=== PATIENT | female | born 1995 | race Two or more races ===

== ENCOUNTER 2018-05-13 14:34 | Inpatient (IN) ==
[2018-05-13] MEDS ORDERED: BUTORPHANOL 2 MG/ML VIAL IV PRN (14:57)
[2018-05-13] MEDS ORDERED: ONDANSETRON 4 MG/2 ML VIAL IV PRN (14:57)
[2018-05-13] MEDS ORDERED: MEPERIDINE 50 MG/1 ML VIAL IV PRN (14:57)
[2018-05-13] MEDS ORDERED: DINOPROSTONE VAG GEL 10 MG SYRINGE VAG ONE (14:59)
[2018-05-13] MEDS: LACTATED RINGERS 1,000 ML IV SCH ×2 (15:09→23:34)
[2018-05-13 15:12] LABS: Basophils # 0.1 10*3/uL (0.0-0.2); Basophils % 0.4 % (0.0-0.8); Eosinophils # 0.1 10*3/uL (0.0-0.87); Eosinophils % 0.4 % (0.00-10.9); Hemoglobin 13.2 GM/DL (12.0-16.0); Immature Granulocytes % 1.6 %; Immature Granulocytes Absolute 0.22 #; Lymphocytes # 1.3 10*3/uL (1.4-4.0); Lymphocytes % 9.3 % (21.3-54.2); Mean Corpuscular HGB Conc 34.7 GM/DL (32-36); Mean Corpuscular Hemoglobin 31 PG (27-34); Monocytes # 0.8 10*3/uL (0.11-0.8); Monocytes % 5.8 % (1.7-12.7); Neutrophils # 11.3 10*3/uL (1.4-7.4); Neutrophils % 82.5 % (38.7-73.9); Platelet Count 211 T/CUMM (130-400); Red Blood Count 4.27 MC/CUMM (3.8-5.5); Red Cell Distribution Width 13.7 % (9.3-17.3); White Blood Count 13.7 T/CUMM (4-12)
[2018-05-14] MEDS ORDERED: OXYTOCIN/LR 20 UNIT/1,000 ML BAG IV SCH ×2 (02:00→05:00)
[2018-05-14] MEDS: LACTATED RINGERS 1,000 ML IV SCH ×2 (04:55→11:52)
[2018-05-14] MEDS ORDERED: FAMOTIDINE 20 MG/2 ML VIAL IV ONE (06:35)
[2018-05-14] MEDS ORDERED: ePHEDrine 50 MG/ML AMP ONE (06:58)
[2018-05-14] MEDS ORDERED: fentaNYL 2 MCG/ROPIV 0.2% EPID 100 ML EPIDURAL SCH (07:00)
[2018-05-14] MEDS ORDERED: LIDOCAINE 1% 50 ML VIAL ONE (08:16)
[2018-05-14] MEDS ORDERED: miSOPROStol 200 MCG TABLET ONE (08:16)
[2018-05-14] MEDS ORDERED: METHYLERGONOVINE 0.2 MG/1 ML AMP ONE (08:17)
[2018-05-14] MEDS ORDERED: CARBOPROST TROMETHAMINE 250 MCG/ML AMP IM ONE (08:17)
[2018-05-14 09:03] LABS: Apearance,Urine CLEAR (Clear); Bilirubin,Urine Negative (Negative); Blood, Urine Negative (Negative); Glucose,Urine (UA) 150 mg/dL (Negative); Ketones,Urine 5 mg/dL (Negative); Mucus,Urine Occasional /LPF (Occasional); Nitrite,Urine Negative (Negative); Protein,Urine Negative; RBC,Urine 1 /HPF (0-4); Squamous Epithelial Cell,Urine Occasional /HPF (0-10); Urine Color Yellow (Yellow); Urine Specific Gravity 1.024 (1.001-1.035); Urine Urobilinogen < 2.0 EU/DL (0.2-1.0); WBC,Urine 3 /HPF (0-6)
[2018-05-14] MEDS ORDERED: diphenhydrAMINE 50 MG/1 ML VIAL IV ONE (11:11)
[2018-05-14] MEDS ORDERED: LANOLIN 50% CREAM 0.3 OZ TUBE TOP PRN (14:46)
[2018-05-14] MEDS ORDERED: HYDROCORTISONE 2.5% RECTAL CREAM 30 GM TUBE TOP PRN (14:46)
[2018-05-14] MEDS ORDERED: ACETAMINOPHEN/CODEINE 300-30 MG TABLET PO PRN (14:46)
[2018-05-14] MEDS ORDERED: ACETAMINOPHEN 325 MG TABLET PO PRN (14:46)
[2018-05-14] MEDS ORDERED: WITCH HAZEL PADS 100/JAR TOP PRN (14:46)
[2018-05-14] MEDS ORDERED: BISACODYL 10 MG SUPP RECTAL PRN (14:46)
[2018-05-14] MEDS ORDERED: DIPH/TET/ACEL PERT BOOSTER VACCINE 0.5 ML VIAL IM ONE (14:46)
[2018-05-14] MEDS ORDERED: RHO(D) IMMUNE GLOBULIN 300 MCG SYRINGE IM ONE (14:46)
[2018-05-14] MEDS ORDERED: BENZOCAINE 20%/MENTHOL 0.5% SPRAY 56 GM CAN TOP PRN (14:46)
[2018-05-14] MEDS ORDERED: oxyCODONE/ACETAMINOPHEN 5-325 MG TABLET PO PRN (14:46)
[2018-05-14] MEDS ORDERED: MEASLES/MUMPS/RUBELLA VACCINE 0.5 ML VIAL SUBCUT ONE (14:46)
[2018-05-14] MEDS: IBUPROFEN 800 MG TABLET PO PRN ×2 (15:13→22:00)
[2018-05-14] MEDS: DOCUSATE SODIUM 100 MG CAPSULE PO SCH (22:00)
[2018-05-14] MEDS: oxyCODONE/ACETAMINOPHEN 5-325 MG TABLET PO PRN (23:02)
[2018-05-15 05:36] LABS: Basophils # 0.1 10*3/uL (0.0-0.2); Basophils % 0.3 % (0.0-0.8); Eosinophils # 0.1 10*3/uL (0.0-0.87); Eosinophils % 0.7 % (0.00-10.9); Hematocrit 38.2 VOL% (35.7-47.0); Hemoglobin 12.6 GM/DL (12.0-16.0); Immature Granulocytes % 1.2 %; Immature Granulocytes Absolute 0.17 #; Lymphocytes # 2.3 10*3/uL (1.4-4.0); Lymphocytes % 15.6 % (21.3-54.2); Mean Corpuscular Hemoglobin 30 PG (27-34); Mean Corpuscular Volume 91.4 FL (87-102); Mean Platelet Volume 11.6 FL (9.6-12.0); Monocytes % 7.1 % (1.7-12.7); Neutrophils # 10.9 10*3/uL (1.4-7.4); Neutrophils % 75.1 % (38.7-73.9); Platelet Count 194 T/CUMM (130-400); Red Blood Count 4.18 MC/CUMM (3.8-5.5); Red Cell Distribution Width 14.2 % (9.3-17.3); White Blood Count 14.5 T/CUMM (4-12)
[2018-05-15] MEDS: DOCUSATE SODIUM 100 MG CAPSULE PO SCH ×2 (10:30→22:10)
[2018-05-15] MEDS: oxyCODONE/ACETAMINOPHEN 5-325 MG TABLET PO PRN ×2 (11:14→16:47)
[2018-05-16 07:19] VITALS: BP 107/69
[2018-05-16] MEDS: DOCUSATE SODIUM 100 MG CAPSULE PO SCH (08:40)
[2018-05-16] MEDS ORDERED: INFLUENZA VIRUS VACCINE 0.5 ML SYRINGE IM ONE (15:03)
== END 2018-05-16 12:55 | disposition home or self-care (01) | DRG 560 ==
LOC: N.LDOUT 14:34 → N.LD 14:36 → N.OB 05-14 15:19
PROVIDERS: ADMIT Obstetrics & Gynecology; ATTEND Obstetrics & Gynecology